=== PATIENT | male | born 1935 | race Caucasian/White ===

== ENCOUNTER 2016-05-21 10:12 | Day surgery (SDC) | payer OTHER ==
[~2016-05-21 10:12] MED LIST: AMLODIPINE BES2.5 MG PO; ASPIRIN ADULT L81 M1 PO; ATORVASTATIN CA20 MG PO; BUPROPION HCL150 M3 PO; CALTRATE 600+D1 TAB PO; CARVEDILOL12.5 MG PO; CENTRUM SILVER PO; CLARITIN10 M2 PO; FENOFIBRATE54 MG PO; HUMALOG MI SC; HYD PO; ICAPS AREDS FORMULA PO; INVOKANA300 MG PO; LUTEIN1 CAP PO; NAMENDA10 MG PO; OMEGA 3 500 5001 CAP PO; OMEPRAZOLE20 M1 PO; SEROQUEL100 MG PO; TRESIBA FL100 UNIT/M SC; TRIAMTERENE PO; VITAMIN D-31000 UNIT PO
--- NOTE | 2016-05-21 13:42 | Provider's Discharge Care Plan ---
Problem, Goal, Plan Problem List 1. Colon polyp 2. Diverticulosis
--- NOTE | 2016-05-21 13:42 | Provider's Discharge Care Plan ---
Problem, Goal, Plan Problem List 1. Colon polyp 2. Diverticulosis
--- NOTE | 2016-05-21 14:29 | OPERATIVE REPORT ---
DATE OF SURGERY: 05/21/2016 SURGEON: Bharat Albert MD PREOPERATIVE DIAGNOSES: 1. History of colon polyps 2. Family history of colon carcinoma POSTOPERATIVE DIAGNOSES: 1. Colon polyp 2. Diverticulosis PROCEDURE PERFORMED: 1. Colonoscopy with snare polypectomy ANESTHESIA: Total IV general. INDICATIONS: The patient is 80-year-old man presenting with a history of colon polyps as well as a family history of colon malignancy. SURGICAL TECHNIQUE: The patient was taken to the endoscopy suite, where total IV general was administered and the patient was placed in the left lateral decubitus position. A well-lubricated colonoscope was advanced the length of the colon under direct vision. Multiple diverticula were seen in the sigmoid colon. A single sessile polyp, about 4 mm in diameter, was noted at 130 cm from the anal verge, most likely in the proximal transverse colon. This was removed with cautery snare and recovered with suction. Abdominal pressure and counter maneuvering due to redundancy was required; however, the cecum and ileocecal valve were visualized. On withdrawal, the entire colon was inspected. There were no additional polyps or tumors. A careful digital examination of the anal canal also revealed no evidence of induration or tumors. The patient left in good condition.
== END 2016-05-21 14:50 | disposition home or self-care (01) ==
LOC: OR SRH 10:12 → SCU SRH 10:15
PROVIDERS: Surgery
PROC: 0DBL8ZX Excision of Transverse Colon, Via Natural or Artificial Opening Endoscopic, Diagnostic (ICD-10-PCS; principal; 2016-05-21 12:00)
DX: Z12.11 Encounter for screening for malignant neoplasm of colon (principal); D12.3 Benign neoplasm of transverse colon; K57.30 Diverticulosis of large intestine without perforation or abscess without bleeding; Z80.0 Family history of malignant neoplasm of digestive organs; E10.9 Type 1 diabetes mellitus without complications; Z79.84 Long term (current) use of oral hypoglycemic drugs; J44.9 Chronic obstructive pulmonary disease, unspecified; I10 Essential (primary) hypertension